=== PATIENT | female | born 1935 | race African-American/Black ===

== ENCOUNTER 2017-01-15 19:27 | Emergency (ER) | payer OTHER ==
--- NOTE | ~2017-01-15 | CT4 ---
[facility] A Service of [facility] & [facility] RADIOLOGY TEXT RESULTS PATIENT: JORGE BADILLO LOCATION: SED : 37 UNIT #: [id number] AGE: [address]: Haider Jo MD SEX: F ORDER DR: [id number] [address] [address] [id number] E MR#: [id number] Acc #: [id number] NAME: JORGE BADILLO. : 1935 SEX: F STUDY DATE/TIME: 01/15/2017 19:50 UNIT: SED ROOM: STUDY DESCRIPTION: CT Abd and Pelv Wo Cont Attending Physician: Haider Jo M.D. Ordering Physician: Haider Jo M.D. Primary Care Physician: Veronika Fraire A.P.R.N. MEDICAL IMAGING REPORT This report is preliminary unless electronic signature is present. EXAM Abdomen and pelvis CT no contrast, 01/15/2017 INDICATION 81-year-old female with right-sided flank pain for a week. TECHNIQUE Noncontrast abdomen and pelvis CT was performed. There are no comparisons. This CT exam was performed with one or more of the following radiation dose reduction techniques: automatic exposure control, adjustment of mA and/or kV according to patient size, and iterative reconstruction. FINDINGS CT ABDOMENM: Exam markedly degraded by noncontrast technique. There are areas of atelectasis and scarring in both lung bases. No effusion or pneumonia. No pericardial effusion. Aorta demonstrates atherosclerotic change but no aneurysm. Spleen and adrenal glands are unremarkable. Pancreas unremarkable and the gallbladder is contracted. The liver is unremarkable. No hydronephrosis or radiopaque stone associated with either kidney. Ureters unremarkable to the extent visualized. Mid and distal thirds of the ureters not well visualized or assessed. No adenopathy. CT PELVIS: Bladder demonstrates a mildly thickened wall. This may reflect incomplete distension or mild cystitis and should be correlated clinically. No drainable fluid collection in the pelvis or adnexal mass. There is diverticulosis. Bowel demonstrates no obstruction or inflammatory change and the appendix is normal. Inguinal canals demonstrate no adenopathy or fluid collection. There is an umbilical hernia containing fat and omental vessels. It is small in size. No STS. [facility] A Service of [facility] RADIOLOGY TEXT RESULTS PATIENT: JORGE BADILLO [place] [facility] [place]IT #: [id number] AGE: [address]: Haider Jo MD SEX: F ORDER DR: complicating features. Osseous structures demonstrate no suspicious bone lesion. There are degenerative changes in the thoracolumbar spine. IMPRESSION 1. No clearly acute process. No bowel obstruction, drainable fluid collection or focal area of inflammatory change and the appendix is normal. 2. No radiopaque stone or hydronephrosis of either kidney. 3. There is some mild wall thickening of the bladder which may simply relate to incomplete distension. Cystitis can be excluded clinically and with urinalysis. 4. Uncomplicated diverticulosis. 5. Advanced atherosclerotic disease of the aorta. Dictated by... Bud Mejia M.D. THIS IS AN ELECTRONICALLY VERIFIED REPORT Bud Mejia M.D. at 01/16/2017 10:19 AM Tyson TD: 01/16/2017 02:51 JOB #: [id number] MEDICAL IMAGING REPORT
[2017-01-15 19:19] LABS: URINE SOURCE CLEAN CATCH
[2017-01-15 19:22] LABS: URINE APPEARANCE HAZY; URINE BILIRUBIN NEG (NEG); URINE BLOOD NEG (NEG); URINE COLOR YELLOW; URINE GLUCOSE NEG (NORM); URINE KETONE NEG (NEG); URINE NITRATE NEG (NEG); URINE PH 5.5 (5-8); URINE PROTEIN NEG (NEG); URINE UROBILINOGEN 0.2 MG/DL (NORM)
[~2017-01-15 19:27] MED LIST: ASPIRIN PO; ATENOLOL PO; ATORVASTATIN PO; CALCIUM 500+D PO; FISH OIL PO; HUMALOG; HYDROCHLOROTHIAZIDE PO; JANUVIA50 MG PO; LEVEMIR SUBQ; QUINAPRIL PO
[2017-01-15 19:32] LABS: MICRO INDICATED? YES; URINE LEUKOCYTE ESTERASE 1+ (NEG)
[2017-01-15 19:33] LABS: CULTURE INDICATED? YES; URINE BACTERIA 1+ (NEG); URINE MUCUS PRESENT; URINE RBC 0-2 /[HPF] (0-2); URINE SQUAMOUS EPITHELIAL CELL MANY /[HPF]
[2017-01-15 19:38] LABS: BASOPHIL# 0.1 X10e3 (0-0.3); BASOPHIL% 0.7 % (0-2.5); EOSINOPHIL# 0.4 X10e3 (0-0.7); HEMATOCRIT 35.9 % (35.0-45.0); HEMOGLOBIN 11.6 gm/dL (12.0-16.0); LYMPHOCYTE# 4.8 X10e3 (1.0-3.5); LYMPHOCYTE% 34.5 % (17.0-45.0); MEAN CELL VOLUME 87.2 FL (83-96); MEAN CORPUSCULAR HEMOGLOBIN 28.2 PG (28-34); MEAN CORPUSCULAR HGB CONC 32.4 g/dL (30-36); MEAN PLATELET VOLUME 8.9 FL (6.5-11.5); MONOCYTE# 1.2 X10e3 (0-1.0); MONOCYTE% 8.8 % (3.0-12.0); NEUTROPHIL# 7.4 X10e3 (1.5-7.1); PLATELET COUNT 186 X10e3 (140-420); RED BLOOD COUNT 4.12 X10e (3.90-5.30); RED CELL DISTRIBUTION WIDTH 13.9 % (11.0-15.5); WHITE BLOOD COUNT 13.9 X10e3 (4.0-10.5)
[2017-01-15 19:39] LABS: DIFF IND NO
[2017-01-15 19:54] LABS: ALBUMIN SERUM 3.9 g/dL (3.5-5.0); ALKALINE PHOSPHATASE 74 U/L (32-92); ALT (SGPT) 17 U/L (10-40); AST (SGOT) 25 U/L (10-42); BILIRUBIN, DIRECT <0.1 mg/dL (0.0-0.2); BILIRUBIN,INDIRECT 0.2 mg/dL (0.0-0.9); BILIRUBIN,TOTAL 0.3 mg/dL (0.2-2.0); BLOOD UREA NITROGEN 28 mg/dL (9-23); CALCIUM SERUM 9.8 mg/dL (8.4-10.2); CARBON DIOXIDE 24 mmol/L (22-31); CHLORIDE 104 mmol/L (100-111); CREATININE SERUM 1.4 mg/dL (0.6-1.4); GLOM FILT RATE Estimated 46.5 mL/min (>60); GLUCOSE FASTING 136 mg/dL (70-110); POTASSIUM 3.8 mmol/L (3.5-5.1); PROTEIN TOTAL SERUM 7.6 g/dL (6.0-8.3); SODIUM 135 mmol/L (135-145)
== END 2017-01-15 21:35 | disposition home or self-care (01) ==
LOC: SED 19:27
PROVIDERS: Emergency Medicine
DX: N39.0 Urinary tract infection, site not specified (principal); E11.9 Type 2 diabetes mellitus without complications; E78.5 Hyperlipidemia, unspecified; I10 Essential (primary) hypertension; Z90.710 Acquired absence of both cervix and uterus; Z79.899 Other long term (current) drug therapy; Z88.0 Allergy status to penicillin
CPT/HCPCS: 36415; 74176; 80048; 80076; 81003; 85025; 87086; 99284

== ENCOUNTER 2017-05-25 18:37 | Emergency (ER) | payer OTHER ==
--- NOTE | ~2017-05-25 | CR127 ---
[facility]. [facility] A Service of [facility] RADIOLOGY TEXT RESULTS PATIENT: JORGE BADILLO LOCATION: SED : 36 UNIT #: [id number] AGE: [address]: Mono Lo SEX: F ORDER DR: [id number] [address] [address] [id number] E MR#: [id number] Acc #: [id number] NAME: JORGE BADILLO : 1935 SEX: F STUDY DATE/TIME: 05/25/2017 19:24 UNIT: SED ROOM: STUDY DESCRIPTION: CR Foot Complete Min 3 View Rt Attending Physician: Mono Lo P.A.-C. Ordering Physician: Mono Lo P.A.-C. Primary Care Physician: Veronika Fraire A.P.R.N. MEDICAL IMAGING REPORT This report is preliminary unless electronic signature is present. EXAM Right foot 3 views 05/25/2017 1924 hours HISTORY 82-year-old woman complaining of a painful, swollen, red great toe for 3-4 days. No known injury. COMPARISON None. FINDINGS AP, lateral and oblique views demonstrate mild dorsal soft tissue swelling distally over the metatarsal distal metatarsal region. There is no fracture or dislocation. There is mild spurring at the first metatarsal-phalangeal joint. No erosion seen. No fracture. There is moderate plantar calcaneal spurring. IMPRESSION 1. Mild distal soft tissue swelling dorsally. There is no fracture or dislocation. There is trace spurring at the first metatarsal-phalangeal joint but there is no fracture or erosion seen. 2. Moderate plantar calcaneal spurring. Dictated by... Marina Merlos M.D. THIS IS AN ELECTRONICALLY VERIFIED REPORT Marina Merlos M.D. at 05/26/2017 6:41 PM RUBENS/ami TD: 05/26/2017 08:[facility] & [facility] RADIOLOGY TEXT RESULTS PATIENT: JORGE BADILLO [place] [facility] [place] 36 UNIT #: [id number] AGE: [address]: Mono Lo PAC SEX: F ORDER DR: ALLISON #: [id number] MEDICAL IMAGING REPORT Page 1 of 1
== END 2017-05-25 20:11 | disposition home or self-care (01) ==
LOC: SED 18:37
DX: M10.9 Gout, unspecified (principal); I12.9 Hypertensive chronic kidney disease with stage 1 through stage 4 chronic kidney disease, or unspecified chronic kidney disease; E11.9 Type 2 diabetes mellitus without complications; E78.00 Pure hypercholesterolemia, unspecified; N18.9 Chronic kidney disease, unspecified; Z88.0 Allergy status to penicillin; Z79.899 Other long term (current) drug therapy; Z79.82 Long term (current) use of aspirin
CPT/HCPCS: 73630; 99283